=== PATIENT | male | born 1965 | race Caucasian/White ===

== ENCOUNTER 2021-11-13 15:20 | Outpatient (CLI) | payer BC, SELFPAY ==
[2021-11-13 14:51] LABS: Albumin* 4.2 g/dL (3.3-5.0); Chloride* 102 mmol/L (96-114); Creatinine Urine 47.5 mg/dL; Potassium* 4.4 mmol/L (3.6-5.1); Sodium* 138 mmol/L (135-149)
[2021-11-13 14:53] LABS: Cholesterol* 129 mg/dL (90-199); Creatinine* 0.8 mg/dL (0.5-1.5); Estimated Glomerular Filt Rate 104 ml/min
[2021-11-13 14:54] LABS: Alanine Aminotransferase* 16 U/L (4-50); Alkaline Phosphatase* 95 U/L (40-150); Aspartate Amino Transferase* 22 U/L (12-35); Bilirubin Total* 0.5 mg/dL (0.1-1.5); Blood Urea Nitrogen* 16 mg/dL (7-30); Carbon Dioxide* 28 mmol/L (20-32); Glucose* 141 mg/dL (60-115); Total Protein* 6.6 g/dL (6.0-8.3); Triglycerides* 43 mg/dL (40-149)
[2021-11-13 14:55] LABS: Calcium* 8.8 mg/dL (8.4-10.6); HDL Cholesterol* 36 mg/dL (>=40); LDL Cholesterol Calculated 84 mg/dL (<100)
[2021-11-13 14:57] LABS: Microalbumin Creatinine Ratio 20 mg/g (0-30); Microalbumin Urine < 1 mg/dL
[2021-11-13 15:23] LABS: PSA Screen* 0.45 ng/mL (0.10-4.00)
== END 2021-11-13 15:21 | disposition home or self-care (01) ==
PROVIDERS: PCP Family Medicine; Visit Provider Family Medicine
DX: Z00.00 Encounter for general adult medical examination without abnormal findings (principal); E10.9 Type 1 diabetes mellitus without complications; Z12.5 Encounter for screening for malignant neoplasm of prostate; Z13.6 Encounter for screening for cardiovascular disorders
CPT/HCPCS: 80053; 80061; 82043; 82570; 84153

== ENCOUNTER 2023-01-07 07:49 | Outpatient (CLI) | payer BC, SELFPAY | END 2023-01-07 07:50 | disposition home or self-care (01) | LOC: NFLDREF 01-08 22:21 | PROVIDERS: PCP Family Medicine; Referring Provider Family Medicine; Visit Provider Family Medicine | DX: E78.5 Hyperlipidemia, unspecified (principal); E11.9 Type 2 diabetes mellitus without complications; Z12.5 Encounter for screening for malignant neoplasm of prostate | CPT/HCPCS: 80053; 80061; 82043; 82570; 84153 ==